=== PATIENT | female | born 1935 | race Caucasian/White ===

== ENCOUNTER 2018-03-11 09:36 | Emergency (ER) | payer OTHER ==
[~2018-03-11] VITALS: Ht 162.6 cm; Wt 61.2 kg
[~2018-03-11 09:36] MED LIST: AMARIL; ASA81 MG; CIPRO500 MG PO; EC-NAPROSYN375 MG PO; FLEXERIL5 MG; KOMBIGLYZE XR1 EAC2; LEVSIN0.125 MG PO; LIPITOR20 MG; LOSARTAN-HCTZ1 EAC1; NABUMETONE500 MG PO; NEURONTIN250 MG/5 M PO; PAXIL20 MG; PERCOCET 5/3251 TAB PO; PLAVIX75 MG; PROTONIX40 MG PO; ULTRACET PO; VICODIN 5/5001 UDTAB PO; ZANTAC300 MG PO; [UNRECOGNIZED DRUG - OTHER] PO
[2018-03-11] MEDS ORDERED: RISPERDAL M-TAB3 MG (10:05)
== END 2018-03-11 19:11 | disposition home or self-care (01) ==
LOC: ER 09:36
DX: R04.0 Epistaxis (principal)

== ENCOUNTER 2019-06-01 19:28 | Emergency (ER) | payer OTHER ==
[~2019-06-01] VITALS: Ht 165.1 cm; Wt 54.4 kg
[~2019-06-01 19:28] MED LIST changes: +RISPERDAL M-TAB3 MG
[2019-06-01] MEDS ORDERED: DIVALPROEX SOD250 MG (20:08)
[2019-06-01] MEDS ORDERED: MEMANTINE HCL5 MG (20:09)
[2019-06-01] MEDS ORDERED: MIRAPEX0.125 MG (20:09)
[2019-06-01] MEDS ORDERED: OLANZAPINE ODT5 MG (20:10)
[2019-06-01] MEDS ORDERED: RYTARY ER 23.71 EACH (20:11)
[2019-06-01] MEDS ORDERED: MAGNESIUM200 MG (20:11)
[2019-06-01] MEDS ORDERED: PHOSPHATIDYL S100 GM (20:11)
== END 2019-06-01 23:54 | disposition home or self-care (01) ==
LOC: ER 19:28
DX: S00.03XA Contusion of scalp, initial encounter (principal); S39.82XA Other specified injuries of lower back, initial encounter; S19.89XA Other specified injuries of other specified part of neck, initial encounter; G20 Parkinson's disease; W18.09XA Striking against other object with subsequent fall, initial encounter; Y93.89 Activity, other specified; Y92.018 Other place in single-family (private) house as the place of occurrence of the external cause; Y99.8 Other external cause status